=== PATIENT | female | born 1980 | race African-American/Black ===

== ENCOUNTER 2019-04-20 14:03 | Emergency (ER) | payer OTHER ==
[~2019-04-20] VITALS: Ht 165.1 cm; Wt 132.0 kg
[~2019-04-20 14:03] MED LIST: AMLO10TA PO; ASPI-1718 PO; LORA-478 PO; METO100T98 PO; NORT10CA PO; PROM25TA85 PO; RIZA10TA16 PO; SIMV40TA5 PO; TOPI200T7 PO
[2019-04-20 14:20] VITALS: BP 200/123
--- NOTE | 2019-04-20 14:22 | NUR ---
38 Y FEMALE PT REQUESTING MED REFILL OF CLONIDINE 0.2MG. PT BP ELEVATED 200/123. DR ROACH NOTIFIED. PT [id number]. BED IS DOWN, LOCKED, BED RAIL X 1, ERMD TO SEE PT HX: HTN, MIGRAINES RX: CLONIDINE, METOPROLOL, HCT, TOPAMAX, AND MAXAOT
[2019-04-20] MEDS ORDERED: cloNIDine 0.1 MG TAB PO ONE ×2 (14:30→16:05)
--- NOTE | 2019-04-20 14:30 | NUR ---
DR ROACH AT BEDSIDE
[2019-04-20] MEDS ORDERED: hydrALAZINE 20 MG/ML VIAL IVP ONE ×2 (15:00→17:55)
[2019-04-20] MEDS ORDERED: hydrALAZINE 20 MG/ML VIAL IM ONE (15:25)
--- NOTE | 2019-04-20 15:30 | NUR ---
HYDRALAZINE IM ADMINISTERED BY STUDENT. INSTRUCTOR PRESENT. [employer]
[2019-04-20] MEDS ORDERED: MORPHINE SULFATE 4 MG/ML SYR IM ONE (15:55)
--- NOTE | 2019-04-20 16:00 | NUR ---
PAIN 6/10 HEADACHE, MORPHINE IM ADMINISTERED
--- NOTE | 2019-04-20 16:35 | NUR ---
[facility] EMT AT BEDSIDE FOR EKG
--- NOTE | 2019-04-20 16:58 | NUR ---
LAB AT BEDSIDE
[2019-04-20] MEDS ORDERED: fentaNYL 0.05 MG/ML VIAL IVP ONE (17:00)
--- NOTE | 2019-04-20 17:12 | NUR ---
FENTANYL IVP ADMINISTERED. PT TOLERATED WELL
[2019-04-20 17:28] LABS: BASOPHILS # (AUTO) 0.1 K/uL (0.00-0.22); BASOPHILS % (AUTO) 0.9 % (0.0-2.0); EOSINOPHILS % (AUTO) 0.2 % (0.0-4.0); HEMOGLOBIN 13.7 g/dL (12.0-16.0); LYMPHOCYTES # (AUTO) 3.2 K/uL (2.5-16.5); LYMPHOCYTES % (AUTO) 40.7 % (20.5-51.1); MEAN CORPUSCULAR HEMOGLOBIN 26 pg (27-31); MEAN CORPUSCULAR HGB CONC 33 g/dL (33-37); MEAN CORPUSCULAR VOLUME 80.9 fL (80-94); MONOCYTES # (AUTO) 0.5 K/uL (0.8-1.0); MONOCYTES % (AUTO) 5.8 % (1.7-9.3); NEUTROPHILS # (AUTO) 4.1 K/uL (1.8-7.7); NEUTROPHILS % (AUTO) 52.4 % (42.2-75.2); PLATELET COUNT (AUTO) 392 K/uL (140-450); RED BLOOD CELL COUNT(AUTO) 5.19 MIL/uL (4.20-5.40); WHITE BLOOD COUNT (AUTO) 7.8 K/uL (4.8-10.8)
--- NOTE | 2019-04-20 17:38 | NUR ---
PT REQUESTING DINNER, CARDIAC DIET ORDERED
--- NOTE | 2019-04-20 17:49 | NUR ---
BP 164/110
--- NOTE | 2019-04-20 17:49 | NUR ---
PT STILL COMPLAINING OF MIGRAINE, DR ROACH NOTIFIED. PAIN 02/26
[2019-04-20 17:51] LABS: ALBUMIN 3.3 g/dL (3.4-5.0); ANION GAP 15.3 (8-16); CARBON DIOXIDE 22.5 mmol/L (21-32); CREATININE 0.9 mg/dL (0.6-1.3); TOTAL BILIRUBIN 0.2 mg/dL (0.0-1.0)
--- NOTE | 2019-04-20 17:52 | NUR ---
PT EATING BEDSIDE
[2019-04-20 17:53] LABS: POTASSIUM 2.8 mmol/L (3.5-5.1)
--- NOTE | 2019-04-20 17:53 | NUR ---
POTASSIUM 2.8, DR ROACH NOTIFIED
[2019-04-20] MEDS ORDERED: POTASSIUM CHLORIDE 10 MEQ TABER PO ONE (17:55)
--- NOTE | 2019-04-20 18:00 | NUR ---
POTASSIUM PO ADMINISTERED
[2019-04-20] MEDS ORDERED: ORE25 PO (18:06)
[2019-04-20] MEDS ORDERED: CLON0.2T43 PO (18:06)
--- NOTE | 2019-04-20 18:38 | NUR ---
BP 167/106
--- NOTE | 2019-04-20 19:14 | NUR ---
REPORT GIVEN TO LEVI GASPAR
[2019-04-20] MEDS ORDERED: ONDANSETRON 4 MG ODT PO ONE (21:15)
[2019-04-20 21:38] VITALS: BP 167/106
== END 2019-04-20 21:23 | disposition short-term general hospital (02) ==
LOC: MED 14:03
DX: I16.0 Hypertensive urgency (principal); G43.909 Migraine, unspecified, not intractable, without status migrainosus; E87.6 Hypokalemia; I10 Essential (primary) hypertension; Z79.899 Other long term (current) drug therapy; Z88.5 Allergy status to narcotic agent; Z88.8 Allergy status to other drugs, medicaments and biological substances
CPT/HCPCS: 36415; 80053; 85025; 93005; 96372; 96374; 96375; 99285; J0360; J2270; J3010; Q0162

== ENCOUNTER 2022-09-09 01:38 | Emergency (ER) | payer OTHER ==
[~2022-09-09] VITALS: Ht 165.1 cm; Wt 108.9 kg
[~2022-09-09 01:38] MED LIST changes: -AMLO10TA PO; -ASPI-1718 PO; +CLON-1170 PO; +HYDR-4004 PO; -LORA-478 PO; +METO100T22 PO; -METO100T98 PO; -NORT10CA PO; -RIZA10TA16 PO; +RIZA10TA88 PO; -SIMV40TA5 PO
[2022-09-09 01:40] VITALS: BP 172/110
--- NOTE | 2022-09-09 01:43 | NUR ---
to bed ambulatory
--- NOTE | 2022-09-09 01:56 | NUR ---
PT IN ROOM 6
--- NOTE | 2022-09-09 02:01 | NUR ---
ERMD AT BEDSIDE
[2022-09-09] MEDS ORDERED: CLON-1170 PO (02:06)
[2022-09-09] MEDS ORDERED: METO100T22 PO (02:06)
[2022-09-09] MEDS ORDERED: HYDR-4004 PO (02:06)
--- NOTE | 2022-09-09 02:14 | NUR ---
PATIENT SEEN AND ASSESSED BY SUKHI ALBERT. NO NURSING INTERVENTIONS. Written and verbal after care instructions given and explained. Patient alert, oriented and verbalized understanding of instructions. Ambulatory with steady gait. All questions addressed prior to discharge. ID band removed. Patient advised to follow up with PMD. Rx of CLONIDINE HCL, HYDROCHLOROTHIAZIDE, AND METROPOLOL TARTRATE given. Patient educated on indication of medication including possible reaction and side effects. Opportunity to ask questions provided and answered.
== END 2022-09-09 02:14 | disposition home or self-care (01) ==
LOC: MED 01:38
DX: I10 Essential (primary) hypertension (principal); Z76.0 Encounter for issue of repeat prescription; Z79.899 Other long term (current) drug therapy; Z88.8 Allergy status to other drugs, medicaments and biological substances; Z88.5 Allergy status to narcotic agent; Z88.2 Allergy status to sulfonamides; Z98.890 Other specified postprocedural states
CPT/HCPCS: 99281